=== PATIENT | female | born 1945 | race Caucasian/White ===

== ENCOUNTER 2017-09-26 06:22 | Inpatient (IN) | payer OTHER ==
--- NOTE | 2017-09-14 14:44 | PAT Medication Instructions ---
Service Date Sep 14, 2017. Current Home Medication List Aspirin (Aspirin Ec), 81 MG PO QAM Calcium Citrate (Calcitrate), 600 MG PO QAM Cyanocobalamin (Vitamin B-12), 1,000 MCG PO QAM Ferrous Sulfate (Iron), Unknown Dose QPM Meloxicam (Mobic), 7.5 MG PO UD PRN for PRN Metoprolol Succinate (Toprol Xl), 50 MG PO QPM Multivitamin (Multivitamin), 1 TAB PO QAM Nitroglycerin (Nitrostat), 0.4 MG UT PRN Rivaroxaban (Xarelto), 20 MG PO QPM Simvastatin (Zocor), 40 MG PO QPM Zinc (Cvs Zinc), 25 MG PO QAM Medication Instructions For Your Scheduled Surgery -Continue as directed: Nitroglycerin (Nitrostat), 0.4 MG UT PRN -Check with your customer support specialist for instructions for: Rivaroxaban (Xarelto), 20 MG PO QPM (MUST BE HELD FOR 72 HOURS PRIOR TO SURGERY FOR SPINAL ANESTHESIA) - Hold the following medications per your surgeon's instructions: Meloxicam (Mobic), 7.5 MG PO UD PRN for PRN - Hold the following medications the morning of surgery: Calcium Citrate (Calcitrate), 600 MG PO QAM Cyanocobalamin (Vitamin B-12), 1,000 MCG PO QAM Multivitamin (Multivitamin), 1 TAB PO QAM Zinc (Cvs Zinc), 25 MG PO QAM - Take the following medications the morning of surgery with a sip of water: Aspirin (Aspirin Ec), 81 MG PO QAM - Take the following medications as scheduled the night before surgery: Ferrous Sulfate (Iron), Unknown Dose QPM Metoprolol Succinate (Toprol Xl), 50 MG PO QPM Simvastatin (Zocor), 40 MG PO QPM If you have any questions please call us at [phone] or [phone] or [phone]
--- NOTE | 2017-09-14 15:29 | DIAGNOSTIC IMAGING REPORT ---
CHEST 2 VIEWS ROUTINE HISTORY: 72 years-old Female PAT preoperative exam. No acute chest complaints. COMPARISON: None available TECHNIQUE: PA and lateral views of the chest FINDINGS: Cardiac silhouette is enlarged. Atherosclerosis of the aorta. Mitral annular calcifications are noted. Subsegmental opacities of the lingula. No pneumothorax, pleural effusion or lobar airspace consolidation. No overt pulmonary edema. Lungs are mildly hyperinflated. Bones of the chest appear grossly intact. Remote fractures of the lateral right upper ribs. IMPRESSION: 1. Cardiomegaly without overt pulmonary edema. 2. Subsegmental lingular opacities favor atelectasis. The above report was generated using voice recognition software. It may contain grammatical, syntax or spelling errors. Electronically signed by: Feliciano Osei M.D. 09/14/2017 3:28 PM Dictated Date/Time: 09/14/2017 3:27 PM
[2017-09-14 16:23] LABS: BASO % 0.2 %; BASO ABS # 0.01 K/uL (0-0.2); EOS % 2.5 %; EOS ABS # 0.14 K/uL (0-0.5); HEMATOCRIT 34.3 % (37-47); IG# 0.01 K/uL (0.00-0.02); LYMPH % 36.4 %; LYMPH ABS # 2.07 K/uL (1.2-3.4); MEAN CELL VOLUME 94.2 fL (80-100); MEAN CORPUSCULAR HEMOGLOBIN 30.2 pg (25-34); MEAN CORPUSCULAR HGB CONC 32.1 g/dl (32-36); MEAN PLATELET VOLUME 12.5 fL (7.4-10.4); MONO % 11.1 %; MONO ABS # 0.63 K/uL (0.11-0.59); NEUT % 49.6 %; NEUT ABS # 2.82 K/uL (1.4-6.5); PLATELET COUNT 155 K/uL (130-400); RED CELL DISTRIBUTION WIDTH CV 14.1 % (11.5-14.5); RED CELL DISTRIBUTION WIDTH SD 48.8 fL (36.4-46.3); WHITE BLOOD COUNT 5.68 K/uL (4.8-10.8)
[2017-09-14 16:31] LABS: ALBUMIN 3.5 gm/dl (3.4-5.0); CALCIUM 9.2 mg/dl (8.5-10.1); CREATININE 1.14 mg/dl (0.60-1.20); POTASSIUM 4.2 mmol/L (3.5-5.1)
[2017-09-14 16:34] LABS: PTT PATIENT 27.7 SECONDS (21.0-31.0)
--- NOTE | 2017-09-24 08:11 | History and Physical ---
History & Physical Date Sep 24, 2017. Chief Complaint LEFT HIP PAIN History of Present Illness The patient is a 72 year old female with complaints of left hip and groin pain. cant walk well, limping all the time. Uses a cane at times. On xarelto for afib. Additional History Hepatic Disease: No Endocrine Disorder: No Kidney Disease: No Hypertension: Yes Heart Disease: Yes Bleeding Tendencies: No Infectious Diseases: No Allergies Coded Allergies: Prednisone (Verified Adverse Reaction, Unknown, AGITATED, 09/14/17) Home Medications Scheduled Aspirin (Aspirin Ec), 81 MG PO QAM Calcium Citrate (Calcitrate), 600 MG PO QAM Cyanocobalamin (Vitamin B-12), 1,000 MCG PO QAM Ferrous Sulfate (Iron), Unknown Dose QPM Metoprolol Succinate (Toprol Xl), 50 MG PO QPM Multivitamin (Multivitamin), 1 TAB PO QAM Nitroglycerin (Nitrostat), 0.4 MG UT PRN Rivaroxaban (Xarelto), 20 MG PO QPM Simvastatin (Zocor), 40 MG PO QPM Zinc (Cvs Zinc), 25 MG PO QAM Scheduled PRN Meloxicam (Mobic), 7.5 MG PO UD PRN for PRN Physical Examination Skin: warm/dry, no rash Eyes: normal inspection, EOMI, sclerae normal ENT: normal ENT inspection, pharynx normal Head: normocephalic, atraumatic Neck: supple, no adenopathy, trachea midline Respiratory/Chest: lungs clear, normal breath sounds, no respiratory distress Cardiovascular: regular rate, rhythm, no edema, no murmur Abdomen / GI: normal bowel sounds, non tender Back: normal inspection Extremities: normal inspection, normal range of motion, + pertinent finding ( pain with rom left hip) Neurologic/Psych: no motor/sensory deficits, alert, normal reflexes, oriented x 3 Diagnosis DJD LEFT HIP Plan of Treatment ADMIT, UNDERGO LEFT JERRY. HOME PT, XARELTO POST OP.
[~2017-09-26] VITALS: Ht 170.2 cm; Wt 86.9 kg
[2017-09-26] VITALS (9 sets, daily range): BP systolic 110–168; BP diastolic 62–90; PULSE 55–66; TEMP 36.3–37; O2SAT 93–99; Ht 170.2 cm; Wt 86.9 kg
[~2017-09-26 06:22] MED LIST: ACETAMINOPHEN 500 MG TAB PO SCH; ASPI81TA28 PO; CALC950T3 PO; CEFAZOLIN 2000MG IV PUSH 15 ML IV SCH; CYAN10005 PO; CeleBREX 200 MG CAP PO SCH; DEXAMETHASONE 4 MG TAB PO SCH; FAMOTIDINE 20 MG TAB PO SCH; FERR1TAB23; LACTATED RINGER'S 1000ML 1,000 ML IV SCH; LACTATED RINGER'S 1000ML 500 ML IV SCH; MELO7.5T5 PO; METO-452 PO; METOCLOPRAMIDE HCL 10 MG TAB PO SCH; MULT-506 PO; NITR0.4S UT; ROPIVACAINE 5MG/ML 30 ML 150 MG, BUPIVACAINE 0.5% MPF INJ 30 ML, EpINEphrine HCL INJ 0.... INFIL SCH; SIMV40TA2 PO; TRANEXAMIC ACID INJ 1,000 MG x 1 Bag Intra-Op IV SCH; TRANEXAMIC ACID INJ 1,000 MG x 1 Bag Preop IV SCH; XRL10 PO; ZINC50TA36 PO
[2017-09-26] MEDS ORDERED: BUPIVACAINE 0.5 % 5 MG/1 ML PF 10ML VIAL ONE (06:37)
--- NOTE | 2017-09-26 06:52 | History & Physical Bridge Note ---
H&P Re-Evaluation Bridge Note: I have examined the patient, reviewed the History & Physical and in the interval since the performance of the History & Physical I have noted the following changes of clinical significance: No changes noted
[2017-09-26] MEDS ORDERED: MIDAZOLAM HCL 1 MG/ML 2ML VIAL ONE ×3 (07:45→09:47)
[2017-09-26] MEDS ORDERED: FENTANYL CITRATE INJ 50 MCG/1 ML 2 ML VIAL IV PRN (08:30)
[2017-09-26] MEDS ORDERED: EpHEDrine SULFATE INJ 50 MG/ML AMP IV PRN (08:30)
[2017-09-26] MEDS ORDERED: ONDANSETRON INJ 2 MG/ML 2 ML VIAL IV PRN ×2 (08:30→10:15)
[2017-09-26] MEDS ORDERED: ATROPINE SULFATE 0.1 MG/ML 5ML SYR IV PRN (08:30)
[2017-09-26] MEDS ORDERED: ORTHO JOINT ANESTHETIC ONE (08:42)
[2017-09-26] MEDS ORDERED: BACITRACIN 50000 UNIT VIAL ONE (08:42)
[2017-09-26] MEDS ORDERED: POVIDONE-IODINE OP SOLN 30 ML BTL ONE (09:24)
[2017-09-26] MEDS ORDERED: LIDOCAINE HCL 2% 2 ML VIAL (20MG/ML) ONE (09:37)
[2017-09-26] MEDS ORDERED: PROPOFOL IV EMULSION 10 MG/ML 20 ML VIAL IV ONE (09:37)
[2017-09-26] MEDS ORDERED: PHENYLEPHRINE 100MCG/ML 5ML SYR ONE (10:15)
[2017-09-26] MEDS ORDERED: ZOLPIDEM TARTRATE 5 MG TAB PO PRN (10:15)
[2017-09-26] MEDS ORDERED: MAGNESIUM HYDROXIDE SUSP 30 ML UDC PO PRN (10:15)
[2017-09-26] MEDS ORDERED: ALUMINUM/MAGNESIUM/SIMETH (MAALOX MAX) 30 ML UDC PO PRN (10:15)
[2017-09-26] MEDS ORDERED: NO NSAIDS SCH (10:15)
[2017-09-26] MEDS ORDERED: BISACODYL 10 MG SUPP PR PRN (10:15)
--- NOTE | 2017-09-26 10:24 | [facility] Operative Report ---
Operative Report Operative Date Sep 26, 2017. Pre-Operative Diagnosis Left Hip Degenerative Joint Disease Post-Operative Diagnosis Left Hip Degenerative Joint Disease Procedure(s) Performed Left Total Hip Arthroplasty- Uncemented Surgeon Dr. Keyes Cabin Man Surgeon(s) Charlee Hahn PA-C Estimated Blood Loss 25 ml Specimens a. Left Femoral Head Drains one Anesthesia Type MAC Spinal Regional Complication(s) none Disposition no Recovery Room / PACU Description of Procedure IMPLANTS USED: Woodland size 52 mm PSL KOHLI coated acetabular cup, one acetabular screw, a 36 mm X3 elevated liner, a #4 Accolade 2 stem with a 127 neck, a 36 mm -5 ceramic head. INDICATIONS: Mrs. Tsang is a pleasant female)] who has unfortunately failed all forms of conservative measures. Therefore, they have has decided to undergo elective surgical intervention. All risks and benefits of the surgery were discussed with the patient and the family in entirety. PROCEDURE: The patient was brought to the operating room and properly identified by myself, anesthesia, and staff. Patient was given a spinal anesthetic and placed on the operating table with the left hip up. The hip was then prepped and draped in the standard orthopedic fashion. We made a standard posterolateral approach over the greater trochanteric area. We then dissected down to subcutaneous tissue until the fascia was identified. We incised the fascia in line with the skin incision. We then split the gluteus mikayla muscles with finger dissection. We then put the Charnley retractor in place. We placed the retractor underneath the gluteus medius to expose the piriformis. The piriformis was then tagged with a tag suture and released from the insertion from the greater trochanteric area with the use of electrocautery. We then performed a T capsulotomy and the femoral head and neck were atraumatically dislocated. We then performed femoral neck osteotomy at the pre- template site. We removed the femoral head and neck without difficulty. We then placed the retractor around the acetabulum. We then began to ream the acetabulum to the appropriate size. We then impacted the cup into place and had a very good fixation within the pelvis. We then put the liner in place as well. Then using multiple size approaches from the Accolade 2 system a size #4 fit very nicely in the proximal femur. I then put trial components in place. WE had very good range of motion, excellent stability, and excellent leg length equality. We removed the trial components and irrigated the wound. We then impacted the components in place and irrigated the wound once more. We then closed the capsule and fascia with a 0 Vicryl suture, the deep dermis with 2-0 Vicryl suture, and finally the skin with a running 3-0 Vicryl subcuticular stitch. A sterile dressing was applied. The patient was taken to the recovery room in stable condition. Due to the complex nature of the procedure, the entire surgery was performed with the operational assistance of Charlee Hahn PA-C. The legal document assistant was under direct supervision, was involved in the actual performance of all aspects of the surgical procedure including hemostasis, tissue retraction and incision, instrument management, patient positioning, and wound closure. I attest to the content of the Intraoperative Record and any orders documented therein. Any exceptions are noted below.
[2017-09-26] MEDS ORDERED: NITROGLYCERIN 0.4 MG SL PER TAB CHARGE UT PRN (10:30)
--- NOTE | 2017-09-26 11:33 | Anesthesiology Progress Note ---
Anesthesia Post Op Note Date & Time Sep 26, 2017 at 11:33 Vital Signs Pain Intensity: 0 Vital Signs Past 12 Hours Date Time Temp Pulse Resp B/P (MAP) Pulse Ox O2 Delivery O2 Flow Rate FiO2 09/26/17 11:15 36.4 57 16 106/69 96 Room Air 09/26/17 11:05 60 16 117/57 96 Room Air 09/26/17 10:55 68 18 103/53 97 Room Air 09/26/17 10:45 36.0 57 20 110/55 99 Room Air 09/26/17 07:15 37 61 20 168/90 99 Room Air Notes Mental Status: alert / awake / arousable, participated in evaluation Pt Amnestic to Procedure: Yes Nausea / Vomiting: adequately controlled Pain: adequately controlled Airway Patency, RR, SpO2: stable & adequate BP & HR: stable & adequate Hydration State: stable & adequate Neuraxial Anesthesia: was administered, sensory block is resolving Anesthetic Complications: no major complications apparent
[2017-09-26] MEDS: ACETAMINOPHEN 500 MG TAB PO SCH ×2 (13:37→21:38)
[2017-09-26] MEDS: SODIUM CHLORIDE 0.9% 1000ML 1,000 ML IV SCH ×2 (13:39→23:06)
[2017-09-26] MEDS ORDERED: RIVAROXABAN 10 MG TAB PO SCH (16:00)
[2017-09-26] MEDS ORDERED: TRANEXAMIC ACID INJ 1,000 MG in SODIUM CHLORIDE 0.9% 100ML 100 ML IV SCH (17:00)
[2017-09-26] MEDS: CEFAZOLIN IV 2,000 MG in SYRINGE 0 ML IV SCH (17:29)
[2017-09-26] MEDS ORDERED: METOPROLOL SUCC 50MG EXT REL TAB PO SCH (21:00)
[2017-09-26] MEDS ORDERED: RIVAROXABAN 20 MG TAB PO SCH (21:00)
[2017-09-26] MEDS ORDERED: SIMVASTATIN 40 MG TAB PO SCH (21:00)
[2017-09-26] MEDS: OXYCODONE HCL IR 5 MG TAB (IMMEDIATE RELEASE) PO PRN (21:36)
[2017-09-26] MEDS: DOCUSATE SODIUM 100 MG CAP PO SCH (21:37)
[2017-09-27] MEDS: CEFAZOLIN IV 2,000 MG in SYRINGE 0 ML IV SCH (01:57)
[2017-09-27 03:05] VITALS: BP 106/56; PULSE 56; TEMP 36.5; O2SAT 94
[2017-09-27] MEDS: ACETAMINOPHEN 500 MG TAB PO SCH (05:48)
[2017-09-27 07:02] LABS: HEMATOCRIT 29.3 % (37-47); HEMOGLOBIN 9.3 g/dL (12.0-16.0); IG# 0.03 K/uL (0.00-0.02); LYMPH % 11.5 %; MEAN CELL VOLUME 92.7 fL (80-100); MEAN CORPUSCULAR HEMOGLOBIN 29.4 pg (25-34); MEAN CORPUSCULAR HGB CONC 31.7 g/dl (32-36); MEAN PLATELET VOLUME 12.7 fL (7.4-10.4); MONO ABS # 0.76 K/uL (0.11-0.59); NEUT % 80.2 %; NEUT ABS # 7.66 K/uL (1.4-6.5); PLATELET COUNT 131 K/uL (130-400); RED CELL DISTRIBUTION WIDTH CV 13.6 % (11.5-14.5); RED CELL DISTRIBUTION WIDTH SD 46.4 fL (36.4-46.3); WHITE BLOOD COUNT 9.55 K/uL (4.8-10.8)
[2017-09-27] MEDS: SODIUM CHLORIDE 0.9% 1000ML 1,000 ML IV SCH (07:07)
[2017-09-27] MEDS ORDERED: DEXAMETHASONE INJ 10 MG in SYRINGE 0 ML IV SCH (07:30)
--- NOTE | 2017-09-27 08:21 | Anesthesiology Progress Note ---
Anesthesia Post Op Note Date & Time Sep 27, 2017 at 08:21 Vital Signs Pain Intensity: 0.0 Vital Signs Past 12 Hours Date Time Temp Pulse Resp B/P (MAP) Pulse Ox O2 Delivery O2 Flow Rate FiO2 09/27/17 07:55 Room Air 09/27/17 03:05 36.5 56 16 106/56 (73) 94 Room Air 09/26/17 23:05 Room Air 09/26/17 23:05 36.7 58 16 115/62 (79) 95 Room Air 09/26/17 21:35 56 138/79 (98) Notes Mental Status: alert / awake / arousable, participated in evaluation Pt Amnestic to Procedure: Yes Nausea / Vomiting: adequately controlled Pain: adequately controlled Airway Patency, RR, SpO2: stable & adequate BP & HR: stable & adequate Hydration State: stable & adequate Neuraxial Anesthesia: was administered, sensory block resolved Anesthetic Complications: no major complications apparent
--- NOTE | 2017-09-27 08:31 | Orthopedic Progress Note ---
Orthopedic Progress Note Date of Service Sep 27, 2017. Subjective Post OP Day: 1 Reports: feeling well, Denies: complaints Objective calves soft nontender, N/V intact, hip located, dressing C/D/I, A&O x3, toes mobile Date Time Temp Pulse Resp B/P (MAP) Pulse Ox O2 Delivery O2 Flow Rate FiO2 09/27/17 07:55 Room Air 09/27/17 03:05 36.5 56 16 106/56 (73) 94 Room Air 09/26/17 23:05 Room Air 09/26/17 23:05 36.7 58 16 115/62 (79) 95 Room Air 09/26/17 21:35 56 138/79 (98) 09/26/17 19:00 36.6 55 16 112/66 (81) 95 Room Air 09/26/17 15:00 Room Air 09/26/17 14:45 36.5 56 16 110/62 (78) 93 Room Air 09/26/17 14:00 Room Air 09/26/17 13:40 56 16 125/68 (87) 94 Room Air 09/26/17 12:45 36.3 58 16 134/75 (94) 95 Room Air 09/26/17 12:14 66 16 111/65 (80) 94 Room Air 09/26/17 11:45 36.4 62 16 116/67 (83) 98 Room Air 09/26/17 11:45 Room Air 09/26/17 11:45 Room Air 09/26/17 11:30 59 16 108/59 96 Room Air 09/26/17 11:15 36.4 57 16 106/69 96 Room Air 09/26/17 11:05 60 16 117/57 96 Room Air 09/26/17 10:55 68 18 103/53 97 Room Air 09/26/17 10:45 36.0 57 20 110/55 99 Room Air Laboratory Results 24 Hours: Test 09/27/17 06:22 White Blood Count 9.55 K/uL Red Blood Count 3.16 M/uL Hemoglobin 9.3 g/dL Hematocrit 29.3 % Mean Corpuscular Volume 92.7 fL Mean Corpuscular Hemoglobin 29.4 pg Mean Corpuscular Hemoglobin Concent 31.7 g/dl Platelet Count 131 K/uL Mean Platelet Volume 12.7 fL Neutrophils (%) (Auto) 80.2 % Lymphocytes (%) (Auto) 11.5 % Monocytes (%) (Auto) 8.0 % Eosinophils (%) (Auto) 0.0 % Basophils (%) (Auto) 0.0 % Neutrophils # (Auto) 7.66 K/uL Lymphocytes # (Auto) 1.10 K/uL Monocytes # (Auto) 0.76 K/uL Eosinophils # (Auto) 0.00 K/uL Basophils # (Auto) 0.00 K/uL Assessment & Plan Assessment: POD 1 s/p Left JERRY Plan: PT/OT Plan for HH services upon dc Possible dc to home today. Inhouse Planning Pain Management: PO Tylenol, Oxy IR DVT Prophylaxis: TEDs, SCDs, Xarelto Discharge Planning Discharge Planning: home with home health
[2017-09-27] MEDS ORDERED: TRAM-10 PO (08:36)
[2017-09-27] MEDS ORDERED: ACET-24 PO (08:36)
--- NOTE | 2017-09-27 08:37 | Discharge Instructions ---
Discharge Instructions Date of Service Sep 27, 2017. Admission Reason for Admission: Left Hip Osteoarthritis Discharge Discharge Diagnosis / Problem: Left Hip Djd Discharge Goals Goal(s): Decrease discomfort, Improve function, Increase independence Activity Recommendations Activity Limitations: per Instructions/Follow-up section Weightbearing Status: Left weightbearing (as tolerated) ACTIVITY RECOMMENDATIONS: SELF CARE INSTRUCTIONS AFTER TOTAL HIP REPLACEMENT Until the incision and soft tissues around your hip have healed, there is a possibility that the hip prosthesis could dislocate. A. Observe the following precautions to prevent dislocation: 1. Don't bend your hip greater than 90 degrees. 2. Avoid crossing your legs or ankles while standing or lying. 3. Sit with your feet placed 6 inches apart. 4. When sitting, keep your knees below your hips. Sit on a firm surface, avoid deep, soft chairs and couches. Use an elevated toilet seat in the bathroom. 5. Don't bend over at the waist. Use a long handled shoehorn and a sock aid to help you put on your shoes and socks. A highway engineering technician can help you bean picker machine operator objects that are too high or too low to reach. 6. Keep car riding to a minimum for at least one month after surgery. B. Your balance may be shaky for a while. Use crutches or a walker until directed by your doctor. C. Use hand rails when walking on stairs. D. Wear low heeled shoes with non-slip soles. E. Be sure that your floors are free of things that could trip you - throw rugs , electrical cords, small objects. Avoid wet and waxed floors, especially with crutches and canes. F. Try to walk several times a day with rest periods between. G. Continue with all the exercises taught to you in the hospital. Again, make walking a part of your daily routine. SPECIAL CARE INSTRUCTIONS: VERY IMPORTANT TO READ AND REVIEW A. You may still be at risk for phlebitis and blood clots. 1. Wear surgical stockings (YAO hose) for 2 weeks after surgery to improve circulation and reduce swelling. 2. Take Aspirin 81mg twice daily for 4 weeks or as directed by your doctor. This is your blood thinner. 3. High risk patients may be prescribed a stronger blood thinner if necessary. 4. If you are on Coumadin normally, your family doctor/food products tester should monitor your blood work. Expect a phone call the day of or the day after bloodwork is drawn to adjust your dosage. B. You must take antibiotics before having dental work, bladder, bowel and other surgery. Your doctor will provide you with a permanent card to carry describing precautions. C. Call [facility] if you have a fever, redness or swelling around the incision, cloudy drainage from incision, or sudden increase in pain in your hip, not relieved by your regular pain medication. D. Please call the office at if you have any concerns or questions about your operation or recovery. * YOU MAY SHOWER, NO TUB BATHS UNTIL CLEARED BY YOUR DOCTOR. * WEAR YAO HOSE 20 HOURS PER DAY FOR 2 WEEKS. * YOU SHOULD USE A WALKER OR CRUTCHES FOR 2-4 WEEKS. THIS WILL HELP PREVENT STRAIN ON YOUR HIP MUSCLE AND ALLOW IT TO HEAL PROPERLY. YOU MAY WEAN TO A CANE TOLERATED. * MOST PATIENTS WILL HAVE HOME NURSING FOR THERAPY. IF YOU DECIDE TO DO OUTPATIENT PHYSICAL THERAPY, PLEASE SCHEDULE THIS 3 TIMES PER WEEK. * DERMABOND Prineo- This is a mesh tape dressing that is covered with glue. It should remain in place until the incision is properly healed, usually 10-14 days. This dressing is designed to naturally slough off. You may trim the excess mesh tape as it peels off. Incision may be briefly wet in a shower. Dry immediately by blotting with a clean, dry towel. Do not bath or swim until instructed by your doctor. Do not scratch, rub, or pick at the dressing. Do not apply any topical ointments or lotions until dressing is completely removed and/or instructed by your doctor. There may be a small piece of suture material at one end of your incision. Do not pull or trim this. If it is bothersome or catching on clothing, you may cover it with a band-aid. FOLLOW UP VISIT: If appointment is not already scheduled: Please call [facility] to make a follow-up appointment for 2 weeks after your surgery at . . Current Hospital Diet Patient's current hospital diet: Regular Diet Discharge Diet Recommended Diet: Regular Diet Procedures Procedures Performed: Left Total Hip Arthroplasty- Uncemented Pending Studies Studies pending at discharge: no Medical Emergencies . Who to Call and When: Medical Emergencies: If at any time you feel your situation is an emergency, please call 911 immediately. . Non-Emergent Contact Non-Emergency issues call your: Surgeon Call Non-Emergent contact if: temperature is above 101.5, your pain is not controlled, your pain is worsening, wound has increased drainage, wound has increased redness . "Provider Documentation" section prepared by Ugo Russo. . [place] Drug Monitoring Program Search Results: patient reviewed within database, no issues identified
[2017-09-27] MEDS: OXYCODONE HCL IR 5 MG TAB (IMMEDIATE RELEASE) PO PRN (08:40)
[2017-09-27] MEDS: DOCUSATE SODIUM 100 MG CAP PO SCH (08:41)
[2017-09-27 08:56] VITALS: BP 106/56; PULSE 56; TEMP 36.5; O2SAT 94
[2017-09-27 08:57] VITALS: BP 160/80; PULSE 56; TEMP 36.4; O2SAT 98
[2017-09-27] MEDS ORDERED: ASPIRIN 81 MG ECTAB PO SCH (09:00)
[2017-09-27 09:15] VITALS: BP 127/71
[2017-09-27 10:17] VITALS: BP 127/71
== END 2017-09-27 12:23 | disposition home health service (06) | DRG 470 ==
LOC: C.ACU 06:22 → C.3E 07:00 → ENRESERV 11:17
PROVIDERS: ADMIT Orthopaedic Surgery; ATTEND Orthopaedic Surgery
PROC: 0SRB03A Replacement of Left Hip Joint with Ceramic Synthetic Substitute, Uncemented, Open Approach (ICD-10-PCS; principal; 2017-09-26 09:30)
DX: M16.12 Unilateral primary osteoarthritis, left hip (principal); I11.9 Hypertensive heart disease without heart failure; I48.91 Unspecified atrial fibrillation; Z79.899 Other long term (current) drug therapy; Z79.01 Long term (current) use of anticoagulants; Z79.82 Long term (current) use of aspirin; Z88.8 Allergy status to other drugs, medicaments and biological substances

== ENCOUNTER → 2018-01-03 | Outpatient (CLI) | payer OTHER ==
[~2018-01-03] MED LIST changes: +ACET-24 PO; -ACETAMINOPHEN 500 MG TAB PO SCH; -CEFAZOLIN 2000MG IV PUSH 15 ML IV SCH; -CeleBREX 200 MG CAP PO SCH; -DEXAMETHASONE 4 MG TAB PO SCH; -FAMOTIDINE 20 MG TAB PO SCH; -LACTATED RINGER'S 1000ML 1,000 ML IV SCH; -LACTATED RINGER'S 1000ML 500 ML IV SCH; -METO-452 PO; +METO25TA3 PO; -METOCLOPRAMIDE HCL 10 MG TAB PO SCH; -ROPIVACAINE 5MG/ML 30 ML 150 MG, BUPIVACAINE 0.5% MPF INJ 30 ML, EpINEphrine HCL INJ 0.... INFIL SCH; +SIMV-151 PO; -SIMV40TA2 PO; -TRANEXAMIC ACID INJ 1,000 MG x 1 Bag Intra-Op IV SCH; -TRANEXAMIC ACID INJ 1,000 MG x 1 Bag Preop IV SCH
[2018-01-03 12:34] LABS: BASO % 0.2 %; BASO ABS # 0.01 K/uL (0-0.2); EOS % 4.6 %; EOS ABS # 0.23 K/uL (0-0.5); HEMATOCRIT 36.5 % (37-47); HEMOGLOBIN 11.3 g/dL (12.0-16.0); LYMPH % 28.3 %; LYMPH ABS # 1.41 K/uL (1.2-3.4); MEAN CELL VOLUME 96.1 fL (80-100); MEAN CORPUSCULAR HEMOGLOBIN 29.7 pg (25-34); MEAN PLATELET VOLUME 12.5 fL (7.4-10.4); MONO % 10.2 %; MONO ABS # 0.51 K/uL (0.11-0.59); NEUT % 56.7 %; NEUT ABS # 2.82 K/uL (1.4-6.5); PLATELET COUNT 164 K/uL (130-400); RED CELL DISTRIBUTION WIDTH CV 13.8 % (11.5-14.5); WHITE BLOOD COUNT 4.98 K/uL (4.8-10.8)
[2018-01-03 12:48] LABS: PTT PATIENT 29.9 SECONDS (21.0-31.0)
[2018-01-03 12:53] LABS: ALBUMIN 3.5 gm/dl (3.4-5.0); ALKALINE PHOSPHATASE 85 U/L (45-117); ALT/SGPT 54 U/L (12-78); AST/SGOT 61 U/L (15-37); BLOOD UREA NITROGEN 14 mg/dl (7-18); CALCIUM 9.2 mg/dl (8.5-10.1); CARBON DIOXIDE 29 mmol/L (21-32); CREATININE 1.07 mg/dl (0.60-1.20); GLUCOSE 109 mg/dl (70-99); SODIUM 141 mmol/L (136-145); TOTAL PROTEIN 6.6 gm/dl (6.4-8.2)
== END | disposition home or self-care (01) ==
LOC: C.CPL 11:26
PROVIDERS: ATTEND Orthopaedic Surgery
DX: Z01.818 Encounter for other preprocedural examination (principal)

== ENCOUNTER 2018-01-30 08:02 | Inpatient (IN) | payer OTHER ==
[2017-12-28 13:55] VITALS: BMI 29.0
--- NOTE | 2018-01-03 11:48 | PAT Medication Instructions ---
Service Date Jan 03, 2018. Current Home Medication List Acetaminophen (Sb Non-Aspirin Extra Stre), 1,000 MG PO Q8H Aspirin (Aspirin Ec), 81 MG PO QAM Calcium Citrate (Calcitrate), 600 MG PO QAM Cyanocobalamin (Vitamin B-12), 1,000 MCG PO QAM Ferrous Sulfate (Iron), Unknown Dose QPM Meloxicam (Mobic), 7.5 MG PO BID Metoprolol Succ (Toprol Xl) (Toprol-Xl), 12.5 MG PO QPM Multivitamin (Multivitamin), 1 TAB PO QAM Nitroglycerin (Nitrostat), 0.4 MG UT PRN Rivaroxaban (Xarelto), 20 MG PO QPM Simvastatin (Simvastatin), 1 TAB PO QPM Zinc (Cvs Zinc), 25 MG PO QAM Medication Instructions For Your Scheduled Surgery - Check with surgeon for instructions: Meloxicam (Mobic), 7.5 MG PO BID - Check with surgeon and prescribing physician for instructions (patient already received instructions to hold 3 days prior to surgery) Rivaroxaban (Xarelto), 20 MG PO QPM - Hold the following medications the morning of surgery: Calcium Citrate (Calcitrate), 600 MG PO QAM Cyanocobalamin (Vitamin B-12), 1,000 MCG PO QAM Multivitamin (Multivitamin), 1 TAB PO QAM Zinc (Cvs Zinc), 25 MG PO QAM - Take the following medications the morning of surgery with a sip of water: Acetaminophen (Sb Non-Aspirin Extra Stre), 1,000 MG PO Q8H (okay to take up to 4 hours prior to surgery if needed) Aspirin (Aspirin Ec), 81 MG PO QAM Nitroglycerin (Nitrostat), 0.4 MG UT PRN (if needed) - Take the following medications as scheduled the night before surgery: Acetaminophen (Sb Non-Aspirin Extra Stre), 1,000 MG PO Q8H Ferrous Sulfate (Iron), Unknown Dose QPM Metoprolol Succ (Toprol Xl) (Toprol-Xl), 12.5 MG PO QPM Nitroglycerin (Nitrostat), 0.4 MG UT PRN (if needed) Rivaroxaban (Xarelto), 20 MG PO QPM Simvastatin (Simvastatin), 1 TAB PO QPM If you have any questions please call us at [phone] or [phone] or [phone]
[2018-01-03 11:58] VITALS: Ht 167.6 cm; Wt 86.0 kg
[2018-01-30] VITALS (8 sets, daily range): BP systolic 114–176; BP diastolic 57–84; PULSE 57–81; TEMP 36.3–36.9; O2SAT 95–100
[~2018-01-30] VITALS: Ht 167.6 cm; Wt 86.0 kg
[2018-01-30] MEDS: TRANEXAMIC ACID INJ 1,000 MG x 2 Bags IV SCH ×4 (06:30→09:56)
[~2018-01-30 08:02] MED LIST changes: +ACETAMINOPHEN 500 MG TAB PO SCH; +ATROPINE SULFATE 0.1 MG/ML 5ML SYR IV PRN; +CEFAZOLIN 2000MG IV PUSH 15 ML IV SCH; +DEXAMETHASONE 4 MG TAB PO SCH; +EpHEDrine SULFATE INJ 50 MG/ML AMP IV PRN; +FAMOTIDINE 20 MG TAB PO SCH; +HYDROmorphone INJ 2 MG/ML SYR/VIAL IV PRN; +LACTATED RINGER'S 1000ML 1,000 ML IV SCH; +LACTATED RINGER'S 1000ML 500 ML IV SCH; +LACTATED RINGER'S 1000ML IV SCH; +METOCLOPRAMIDE HCL 10 MG TAB PO SCH; +ONDANSETRON INJ 2 MG/ML 2 ML VIAL IV PRN; +PHENYLEPHRINE 100MCG/ML 5ML SYR IV PRN; +ROPIVACAINE 5MG/ML 30 ML 150 MG, BUPIVACAINE 0.5% MPF INJ 30 ML, EpINEphrine HCL INJ 0.... INFIL SCH
[2018-01-30] MEDS ORDERED: BUPIVACAINE 0.5 % 5 MG/1 ML PF 10ML VIAL ONE (08:17)
[2018-01-30] MEDS ORDERED: MIDAZOLAM HCL 1 MG/ML 2ML VIAL ONE ×2 (08:32→11:00)
[2018-01-30] MEDS ORDERED: FENTANYL CITRATE INJ 50 MCG/1 ML 2 ML VIAL ONE (08:33)
--- NOTE | 2018-01-30 09:20 | History and Physical ---
History & Physical Date Jan 30, 2018. Chief Complaint right hip pain History of Present Illness The patient is a 72 year old female with complaints of right hip pain for years. cant do adls. life is pretty miserable. Past Medical/Surgical History Medical Problems: (1) Degenerative joint disease of left hip Additional History Hepatic Disease: No Endocrine Disorder: No Kidney Disease: No Hypertension: Yes Heart Disease: Yes Bleeding Tendencies: No Infectious Diseases: No Allergies Coded Allergies: Tramadol (Verified Allergy, Unknown, NAUSEA, VOMITING, "ROOM WOULD NOT STOP SPINNING", 01/30/18) Prednisone (Verified Adverse Reaction, Unknown, AGITATED, 01/30/18) Home Medications Scheduled Acetaminophen (Sb Non-Aspirin Extra Stre), 1,000 MG PO Q8H Aspirin (Aspirin Ec), 81 MG PO QAM Calcium Citrate (Calcitrate), 600 MG PO QAM Cyanocobalamin (Vitamin B-12), 1,000 MCG PO QAM Ferrous Sulfate (Iron), Unknown Dose QPM Meloxicam (Mobic), 7.5 MG PO BID Metoprolol Succ (Toprol Xl) (Toprol-Xl), 12.5 MG PO QPM Multivitamin (Multivitamin), 1 TAB PO QAM Nitroglycerin (Nitrostat), 0.4 MG UT PRN Rivaroxaban (Xarelto), 20 MG PO QPM Simvastatin (Simvastatin), 1 TAB PO QPM Zinc (Cvs Zinc), 25 MG PO QAM Physical Examination Skin: warm/dry, no rash Eyes: normal inspection, EOMI, sclerae normal ENT: normal ENT inspection, pharynx normal Head: normocephalic, atraumatic Neck: supple, no adenopathy, trachea midline Respiratory/Chest: lungs clear, normal breath sounds, no respiratory distress Cardiovascular: regular rate, rhythm, no edema, no murmur Abdomen / GI: normal bowel sounds, non tender Back: normal inspection Extremities: normal inspection, normal range of motion, + pertinent finding ( pain with rom right hip) Neurologic/Psych: no motor/sensory deficits, alert, normal reflexes, oriented x 3 Diagnosis djd right hip Plan of Treatment plan is to admit and undergo JERRY.
[2018-01-30] MEDS ORDERED: BACITRACIN 50000 UNIT VIAL ONE (09:52)
[2018-01-30] MEDS ORDERED: ORTHO JOINT ANESTHETIC ONE (09:52)
[2018-01-30] MEDS ORDERED: POVIDONE-IODINE OP SOLN 30 ML BTL ONE (10:35)
[2018-01-30] MEDS ORDERED: PHENYLEPHRINE HCL INJ 10 MG/ML VIAL ONE (10:45)
[2018-01-30] MEDS ORDERED: EpHEDrine SULFATE 50MG/5ML SYR ONE (10:45)
[2018-01-30] MEDS ORDERED: PROPOFOL IV EMULSION 10 MG/ML 20 ML VIAL ONE (10:45)
[2018-01-30] MEDS ORDERED: LIDOCAINE HCL 2% 2 ML VIAL (20MG/ML) ONE (10:45)
[2018-01-30] MEDS ORDERED: PHENYLEPHRINE 100MCG/ML 5ML SYR ONE (10:45)
--- NOTE | 2018-01-30 11:22 | [facility] Post Operative Brief Note ---
Immediate Operative Summary Operative Date Jan 30, 2018. Pre-Operative Diagnosis Degenerative joint disease, right hip Post-Operative Diagnosis Same as preop Procedure(s) Performed Right Total Hip Arthroplasty, uncemented Surgeon Dr. Keyes Artist Consultant Surgeon(s) Maite Russo PA-C Estimated Blood Loss 40 cc Findings Consistent with Post-Op Diagnosis Specimens A: right femoral head Drains one Anesthesia Type MAC Spinal Regional Complication(s) none Disposition Disposition: Recovery Room / PACU
[2018-01-30] MEDS ORDERED: ONDANSETRON INJ 2 MG/ML 2 ML VIAL IV PRN (11:30)
[2018-01-30] MEDS ORDERED: OXYCODONE HCL IR 5 MG TAB (IMMEDIATE RELEASE) PO PRN (11:30)
[2018-01-30] MEDS ORDERED: ZOLPIDEM TARTRATE 5 MG TAB PO PRN (11:30)
[2018-01-30] MEDS ORDERED: NITROGLYCERIN 0.4 MG SL PER TAB CHARGE UT PRN (11:30)
[2018-01-30] MEDS ORDERED: ALUMINUM/MAGNESIUM/SIMETH (MAALOX MAX) 30 ML UDC PO PRN (11:30)
[2018-01-30] MEDS ORDERED: BISACODYL 10 MG SUPP PR PRN (11:30)
[2018-01-30] MEDS ORDERED: MAGNESIUM HYDROXIDE SUSP 30 ML UDC PO PRN (11:30)
--- NOTE | 2018-01-30 12:31 | [facility] Operative Report ---
Operative Report Operative Date Jan 30, 2018. Pre-Operative Diagnosis Degenerative joint disease, right hip Post-Operative Diagnosis Same as preop Procedure(s) Performed Right Total Hip Arthroplasty, uncemented Surgeon Dr. Keyes Gis Geographer Surgeon(s) Maite Russo PA-C Estimated Blood Loss 40 cc Specimens A: right femoral head Drains one Anesthesia Type MAC Spinal Regional Complication(s) none Disposition Recovery Room / PACU Description of Procedure IMPLANTS USED: Argos size 54 mm Trident 2 Tritanium acetabular cup, one acetabular screw, 36 mm X3 elevated liner, #5 Accolade 2 stem with a 127 degree neck, 36 mm -5 ceramic head. INDICATIONS: Mrs. Tsang is a pleasant female who has unfortunately failed all forms of conservative measures. Therefore, they have has decided to undergo elective surgical intervention. All risks and benefits of the surgery were discussed with the patient and the family in entirety. PROCEDURE: The patient was brought to the operating room and properly identified by myself, anesthesia, and staff. Patient was given a spinal anesthetic and placed on the operating table with the right hip up. The hip was then prepped and draped in the standard orthopedic fashion. We made a standard posterolateral approach over the greater trochanteric area. We then dissected down to subcutaneous tissue until the fascia was identified. We incised the fascia in line with the skin incision. We then split the gluteus mikayla muscles with finger dissection. We then put the Charnley retractor in place. We placed the retractor underneath the gluteus medius to expose the piriformis. The piriformis was then tagged with a tag suture and released from the insertion from the greater trochanteric area with the use of electrocautery. We then performed a T capsulotomy and the femoral head and neck were atraumatically dislocated. We then performed femoral neck osteotomy at the pre-template site. We removed the femoral head and neck without difficulty. We then placed the retractor around the acetabulum. We then began to ream the acetabulum to the appropriate size. We then impacted the cup into place and had a very good fixation within the pelvis. We then put the liner in place as well. Then using multiple size approaches from the Accolade 2 system a size #5 fit very nicely in the proximal femur. I then put trial components in place. WE had very good range of motion, excellent stability, and excellent leg length equality. We removed the trial components and irrigated the wound. We then impacted the components in place and irrigated the wound once more. We then closed the capsule and fascia with a 0 Vicryl suture, the deep dermis with 2-0 Vicryl suture, and finally the skin with a running 3-0 Vicryl subcuticular stitch. A sterile dressing was applied. The patient was taken to the recovery room in stable condition. Due to the complex nature of the procedure, the entire surgery was performed with the operational assistance of Ugo Russo PA-C. The administrative personal assistant was under direct supervision, was involved in the actual performance of all aspects of the surgical procedure including hemostasis, tissue retraction and incision, instrument management, patient positioning, and wound closure. I attest to the content of the Intraoperative Record and any orders documented therein. Any exceptions are noted below.
[2018-01-30] MEDS: SODIUM CHLORIDE 0.9% 1000ML 1,000 ML IV SCH ×2 (13:31→22:28)
[2018-01-30 13:55] LABS: CREATININE 1.06 mg/dl (0.60-1.20)
[2018-01-30] MEDS: ACETAMINOPHEN 500 MG TAB PO SCH ×2 (14:26→21:40)
--- NOTE | 2018-01-30 15:52 | Anesthesiology Progress Note ---
Anesthesia Post Op Note Date & Time Jan 30, 2018 at 15:51 Vital Signs Pain Intensity: 0.0 Vital Signs Past 12 Hours Date Time Temp Pulse Resp B/P (MAP) Pulse Ox O2 Delivery O2 Flow Rate FiO2 01/30/18 15:49 36.4 61 17 119/69 (86) 96 Room Air 01/30/18 15:15 Room Air 01/30/18 14:47 57 18 122/70 (87) 95 Room Air 01/30/18 13:51 36.6 60 18 145/73 (97) 100 Nasal Cannula 2.0 01/30/18 13:18 58 16 133/75 (94) 99 2.0 01/30/18 12:45 36.3 81 18 132/77 (95) 96 Nasal Cannula 2.0 01/30/18 12:45 96 Nasal Cannula 2.0 01/30/18 12:45 Nasal Cannula 2.0 01/30/18 12:35 88 16 97/66 (81) 99 Nasal Cannula 2 01/30/18 12:25 36.6 88 20 121/63 98 Nasal Cannula 2 01/30/18 12:15 67 16 123/71 98 Nasal Cannula 2 01/30/18 12:05 82 14 124/65 98 Nasal Cannula 2 01/30/18 11:57 36.0 85 16 144/76 100 Oxymask 10 01/30/18 08:54 36.9 59 20 176/84 96 Room Air Notes Mental Status: alert / awake / arousable, participated in evaluation Pt Amnestic to Procedure: Yes Nausea / Vomiting: adequately controlled Pain: adequately controlled Airway Patency, RR, SpO2: stable & adequate BP & HR: stable & adequate Hydration State: stable & adequate Anesthetic Complications: no major complications apparent
--- NOTE | 2018-01-30 15:55 | Discharge Instructions ---
Discharge Instructions Date of Service Jan 30, 2018. Admission Reason for Admission: Right Hip Osteoarthritis Discharge Discharge Diagnosis / Problem: Right Hip Osteoarthritis Discharge Goals Goal(s): Decrease discomfort, Improve function, Increase independence Activity Recommendations Activity Limitations: per Instructions/Follow-up section Weightbearing Status: Right weightbearing (as tolerated) . Instructions / Follow-Up Instructions / Follow-Up ACTIVITY RECOMMENDATIONS: SELF CARE INSTRUCTIONS AFTER TOTAL HIP REPLACEMENT Until the incision and soft tissues around your hip have healed, there is a possibility that the hip prosthesis could dislocate. A. Observe the following precautions to prevent dislocation: 1. Don't bend your hip greater than 90 degrees. 2. Avoid crossing your legs or ankles while standing or lying. 3. Sit with your feet placed 6 inches apart. 4. When sitting, keep your knees below your hips. Sit on a firm surface, avoid deep, soft chairs and couches. Use an elevated toilet seat in the bathroom. 5. Don't bend over at the waist. Use a long handled shoehorn and a sock aid to help you put on your shoes and socks. A die set up worker can help you product picker objects that are too high or too low to reach. 6. Keep car riding to a minimum for at least one month after surgery. B. Your balance may be shaky for a while. Use crutches or a walker until directed by your doctor. C. Use hand rails when walking on stairs. D. Wear low heeled shoes with non-slip soles. E. Be sure that your floors are free of things that could trip you - throw rugs , electrical cords, small objects. Avoid wet and waxed floors, especially with crutches and canes. F. Try to walk several times a day with rest periods between. G. Continue with all the exercises taught to you in the hospital. Again, make walking a part of your daily routine. SPECIAL CARE INSTRUCTIONS: VERY IMPORTANT TO READ AND REVIEW A. You may still be at risk for phlebitis and blood clots. 1. Wear surgical stockings (YAO hose) for 2 weeks after surgery to improve circulation and reduce swelling. 2. Take Rivaroxaban daily as directed by your doctor. This is your blood thinner. 3. High risk patients may be prescribed a stronger blood thinner if necessary. B. You must take antibiotics before having dental work, bladder, bowel and other surgery. Your doctor will provide you with a permanent card to carry describing precautions. C. Call [facility] if you have a fever, redness or swelling around the incision, cloudy drainage from incision, or sudden increase in pain in your hip, not relieved by your regular pain medication. D. Please call the office at if you have any concerns or questions about your operation or recovery. * YOU MAY SHOWER, NO TUB BATHS UNTIL CLEARED BY YOUR DOCTOR. * WEAR YAO HOSE 20 HOURS PER DAY FOR 2 WEEKS. * YOU SHOULD USE A WALKER OR CRUTCHES FOR 2-4 WEEKS. THIS WILL HELP PREVENT STRAIN ON YOUR HIP MUSCLE AND ALLOW IT TO HEAL PROPERLY. YOU MAY WEAN TO A CANE TOLERATED. * MOST PATIENTS WILL HAVE HOME NURSING FOR THERAPY. IF YOU DECIDE TO DO OUTPATIENT PHYSICAL THERAPY, PLEASE SCHEDULE THIS 3 TIMES PER WEEK. * DERMABOND Prineo- This is a mesh tape dressing that is covered with glue. It should remain in place until the incision is properly healed, usually 10-14 days. This dressing is designed to naturally slough off. You may trim the excess mesh tape as it peels off. Incision may be briefly wet in a shower. Dry immediately by blotting with a clean, dry towel. Do not bath or swim until instructed by your doctor. Do not scratch, rub, or pick at the dressing. Do not apply any topical ointments or lotions until dressing is completely removed and/or instructed by your doctor. There may be a small piece of suture material at one end of your incision. Do not pull or trim this. If it is bothersome or catching on clothing, you may cover it with a band-aid. . FOLLOW UP VISIT: If appointment is not already scheduled: Please call [facility] to make a follow-up appointment for 2 weeks after your surgery at . Current Hospital Diet Patient's current hospital diet: Regular Diet Discharge Diet Recommended Diet: Regular Diet Procedures Procedures Performed: Right Total Hip Arthroplasty, uncemented Pending Studies Studies pending at discharge: no Medical Emergencies . Who to Call and When: Medical Emergencies: If at any time you feel your situation is an emergency, please call 911 immediately. . Non-Emergent Contact Non-Emergency issues call your: Surgeon Call Non-Emergent contact if: temperature is above 101.5, your pain is not controlled, your pain is worsening, wound has increased drainage, wound has increased redness . "Provider Documentation" section prepared by Ugo Russo. . [place] Drug Monitoring Program Search Results: patient reviewed within database, no issues identified
[2018-01-30] MEDS ORDERED: RIVAROXABAN 10 MG TAB PO SCH ×2 (16:00→21:00)
[2018-01-30] MEDS ORDERED: CEFA500C2 PO ×2 (16:26→16:31)
[2018-01-30] MEDS ORDERED: RXC5 PO (16:28)
[2018-01-30] MEDS ORDERED: TRANEXAMIC ACID INJ 1,000 MG in SODIUM CHLORIDE 0.9% 100ML 100 ML IV ONE (18:00)
[2018-01-30] MEDS: CEFAZOLIN IV 2,000 MG in SYRINGE 0 ML IV SCH (18:36)
[2018-01-30] MEDS ORDERED: SIMVASTATIN 20 MG TAB PO SCH (21:00)
[2018-01-30] MEDS ORDERED: METOPROLOL SUCC 25MG EXT REL TAB PO SCH (21:00)
[2018-01-30] MEDS ORDERED: RIVAROXABAN 20 MG TAB PO SCH (21:00)
[2018-01-30] MEDS: DOCUSATE SODIUM 100 MG CAP PO SCH (21:28)
[2018-01-31 02:26] VITALS: BP 94/59; PULSE 67; TEMP 36.4; O2SAT 96
[2018-01-31] MEDS: CEFAZOLIN IV 2,000 MG in SYRINGE 0 ML IV SCH (02:26)
[2018-01-31] MEDS: ACETAMINOPHEN 500 MG TAB PO SCH (05:37)
[2018-01-31 06:07] LABS: HEMATOCRIT 33.1 % (37-47); HEMOGLOBIN 10.4 g/dL (12.0-16.0); IG# 0.03 K/uL (0.00-0.02); LYMPH % 8.3 %; LYMPH ABS # 1.28 K/uL (1.2-3.4); MEAN CELL VOLUME 94.6 fL (80-100); MEAN CORPUSCULAR HEMOGLOBIN 29.7 pg (25-34); MEAN CORPUSCULAR HGB CONC 31.4 g/dl (32-36); MEAN PLATELET VOLUME 11.6 fL (7.4-10.4); MONO % 6.8 %; MONO ABS # 1.04 K/uL (0.11-0.59); NEUT % 84.7 %; NEUT ABS # 13.03 K/uL (1.4-6.5); PLATELET COUNT 152 K/uL (130-400); RED CELL DISTRIBUTION WIDTH CV 13.7 % (11.5-14.5); WHITE BLOOD COUNT 15.38 K/uL (4.8-10.8)
--- NOTE | 2018-01-31 06:23 | Orthopedic Progress Note ---
Orthopedic Progress Note Date of Service Jan 31, 2018. Subjective Post OP Day: 1 Reports: feeling well, pain controlled w PO medications, Denies: complaints Objective calves soft nontender, N/V intact, hip located, dressing C/D/I, A&O x3, toes mobile, hemovac drainage (25ml latest shift) Date Time Temp Pulse Resp B/P (MAP) Pulse Ox O2 Delivery O2 Flow Rate FiO2 01/31/18 02:26 36.4 67 14 94/59 (71) 96 Room Air 01/30/18 23:04 36.4 66 14 133/57 (82) 97 Room Air 01/30/18 22:25 Room Air 01/30/18 19:48 36.4 64 17 114/58 (76) 96 Room Air 01/30/18 15:49 36.4 61 17 119/69 (86) 96 Room Air 01/30/18 15:15 Room Air 01/30/18 14:47 57 18 122/70 (87) 95 Room Air 01/30/18 13:51 36.6 60 18 145/73 (97) 100 Nasal Cannula 2.0 01/30/18 13:18 58 16 133/75 (94) 99 2.0 01/30/18 12:45 36.3 81 18 132/77 (95) 96 Nasal Cannula 2.0 01/30/18 12:45 96 Nasal Cannula 2.0 01/30/18 12:45 Nasal Cannula 2.0 01/30/18 12:35 88 16 97/66 (81) 99 Nasal Cannula 2 01/30/18 12:25 36.6 88 20 121/63 98 Nasal Cannula 2 01/30/18 12:15 67 16 123/71 98 Nasal Cannula 2 01/30/18 12:05 82 14 124/65 98 Nasal Cannula 2 01/30/18 11:57 36.0 85 16 144/76 100 Oxymask 10 01/30/18 08:54 36.9 59 20 176/84 96 Room Air Laboratory Results 24 Hours: Test 01/31/18 05:56 White Blood Count 15.38 K/uL Red Blood Count 3.50 M/uL Hemoglobin 10.4 g/dL Hematocrit 33.1 % Mean Corpuscular Volume 94.6 fL Mean Corpuscular Hemoglobin 29.7 pg Mean Corpuscular Hemoglobin Concent 31.4 g/dl Platelet Count 152 K/uL Mean Platelet Volume 11.6 fL Neutrophils (%) (Auto) 84.7 % Lymphocytes (%) (Auto) 8.3 % Monocytes (%) (Auto) 6.8 % Eosinophils (%) (Auto) 0.0 % Basophils (%) (Auto) 0.0 % Neutrophils # (Auto) 13.03 K/uL Lymphocytes # (Auto) 1.28 K/uL Monocytes # (Auto) 1.04 K/uL Eosinophils # (Auto) 0.00 K/uL Basophils # (Auto) 0.00 K/uL Assessment & Plan Assessment: Pod 1 s/p right JERRY Plan: PT/OT Planning for HH services DC to home today if progressing in PT Inhouse Planning Pain Management: PO Tylenol, Oxy IR DVT Prophylaxis: TEDs, SCDs, Xarelto Discharge Planning Discharge Planning: home with home health
[2018-01-31] MEDS ORDERED: RXC5 PO (07:14)
[2018-01-31] MEDS ORDERED: DEXAMETHASONE 4 MG TAB PO SCH (07:30)
[2018-01-31 07:42] VITALS: BP 120/70; PULSE 74; TEMP 36.7; O2SAT 97
[2018-01-31] MEDS: SODIUM CHLORIDE 0.9% 1000ML 1,000 ML IV SCH (08:48)
[2018-01-31] MEDS: DOCUSATE SODIUM 100 MG CAP PO SCH (08:48)
[2018-01-31 09:57] VITALS: BP 120/70; PULSE 74; TEMP 36.7; O2SAT 97
== END 2018-01-31 13:27 | disposition home health service (06) | DRG 470 ==
LOC: C.ACU 08:02 → ENRESERV 12:19 → C.3E 12:52
PROVIDERS: ADMIT Orthopaedic Surgery; ATTEND Orthopaedic Surgery
PROC: 0SR90JA Replacement of Right Hip Joint with Synthetic Substitute, Uncemented, Open Approach (ICD-10-PCS; principal; 2018-01-30 10:45)
DX: M16.11 Unilateral primary osteoarthritis, right hip (principal); Z88.6 Allergy status to analgesic agent; Z88.8 Allergy status to other drugs, medicaments and biological substances; I10 Essential (primary) hypertension; Z79.82 Long term (current) use of aspirin